=== PATIENT | female | born 1955 | race African-American/Black ===

== ENCOUNTER → 2023-09-10 15:58 | Outpatient (REF) | payer MEDICARE, SELFPAY | LOC: HWRCS 15:58 | PROVIDERS: ATTENDING PHYSICIAN Family Medicine | DX: R06.09 Other forms of dyspnea (principal); R60.0 Localized edema; I10 Essential (primary) hypertension | CPT/HCPCS: 93306 ==

== ENCOUNTER 2024-08-31 07:42 | Emergency (ER) | payer MEDICARE, SELFPAY ==
[2024-08-31 07:46] VITALS: BP 192/98
--- NOTE | 2024-08-31 09:12 | ED.GENMED ---
History of Present Illness
General
Chief Complaint: Abdominal Symptoms
Source: patient
Exam Limitations: none
Time Seen by Provider: 08/31/24 09:11
Nursing documentation reviewed up to this point in time: agreed with
History of Present Illness
History of Present Illness:
69-year-old female with history of HTN presents for sudden onset of nausea, vomiting, diarrhea at 12 AM today. She has had several episodes, her last emesis and the last diarrhea were 2 hours ago. She feels nauseous now. Her daughter with whom
she lives was sick with similar symptoms 2 days ago but she is much improved today.
Patient denies fever or chills. She states her abdomen is 'sore' she denies chest pain or SOB.
Past History
Past History
ED Past Medical History: HTN and Other (hiatal hernia)
ED Past Surgical History: Gynecological and Other (Cholecystotomy tube)
Social History
Tobacco: Non-smoker
Alcohol: Occasional
Living: with family
Employment: Not employed
Review of Systems
Review of Systems
Allergies reviewed?: Yes
All Other Systems: ROS reviewed and negative except as documented in HPI and ROS
Constitutional: Denies fever or chills
Respiratory: Denies trouble breathing
Cardiac: Denies chest pain
ABD/GI: Reports abdominal pain, nausea, vomiting and diarrhea; Denies bloody stools or black stools
: Denies dysuria, frequency or difficulty voiding
Musculoskeletal: Reports no symptoms
Skin: Reports no symptoms
Neurological: Reports no symptoms
Phy Exam
Physical Exam
Physical Exam:
GENERAL: No acute distress. A&Ox3.
CONSTITUTIONAL: Afebrile.
EYES: clear, conjunctivae normal
ENMT: moist mucus membranes
RESPIRATORY: Regular respirations, nonlabored, lungs clear.
CARDIOVASCULAR: Regular rate and rhythm, no murmurs, no rubs.
GI: Soft, nontender, normal BS
MUSCULOSKELETAL: Moves with ease. Well perfused.
SKIN: Warm, dry, normal
PSYCH: Normal mood and affect. Well kept, interactive and appropriate
NEUROLOGIC: Awake, alert and oriented. No focal neurological deficits
Course
Orders/Labs/Results
Orders:
Orders
08/31/24 09:12
Ondansetron Orally Disint [Zofran Odt (Orally Disintegrating)] 4 mg PO NOW STA
08/31/24 11:11
Glucagon [GlucaGen] 1 mg IV NOW STA
08/31/24 10:42
08/31/24 10:50
Vital Signs
Initial and Last Documented VS:
Initial Vital Signs
Temp Pulse Resp BP Pulse Ox
98.8 F 129 18 192/98 100
08/31/24 07:46 08/31/24 07:46 08/31/24 07:46 08/31/24 07:46 08/31/24 07:46
Last Documented Vital Signs
Temp Pulse Resp BP Pulse Ox
98.8 F 82 16 135/78 96
08/31/24 07:46 08/31/24 12:14 08/31/24 12:14 08/31/24 12:14 08/31/24 12:14
MDM/Problems Addressed
Differential Diagnosis Includes:
Gastroenteritis, norovirus
MDM/Problems Addressed:
69-year-old female with history of HTN presents for sudden onset of nausea, vomiting, diarrhea at 12 AM today. She has had several episodes, her last emesis and the last diarrhea were 2 hours ago. She feels nauseous now. Her daughter with whom
she lives was sick with similar symptoms 2 days ago but she is much improved today. Daughter was seen here and had IVFs.
Patient denies fever or chills. She states her abdomen is 'sore' she denies chest pain or SOB.
11:00 AM:
After multiple attempts by 2 different people, unable to retrieve blood work due to patient being a hard stick
After giving her Zofran she is able to hold fluids down and we will try to hydrate her that way.
NAD
1:00 p.m.
No vomiting or diarrhea since arrival
Drank 1500 ml fluid here.
States she is comfortable going home.
Rx for Zofran sent to her pharmacy.
No lab work indicated as she appears well, afebrile, most likely viral gastroenteritis as daughter had similar symptoms 3 days ago.
Pt ambulated out with normal gait
*Critical Care Note
Total Time (30-74mins, 75-104mins- exclusive of procedures): Not Applicable
ED Attending Note
-
Portions of this chart may have been created with voice recognition software.� Occasional wrong word or��sound alike� substitutions may have occurred due to the inherent limitations of voice recognition software.
Discharge Plan
Departure
Patient Disposition: Home (Routine Discharge)
Date of Disposition: 08/31/24
Time of Disposition: 13:02
Patient with high blood pressure during this ER visit?: No
Condition: Good
Discharge Problem:
Gastroenteritis
Instructions: Viral gastroenteritis in adults, Nausea and Vomiting, Adult (DC)
Prescriptions:
New
ondansetron 4 mg tablet,disintegrating
4 mg PO Q8H PRN (Reason: nausea and vomiting) 5 Days Qty: 15 0RF
No Action
aspirin 81 MG tablet,chewable
81 mg PO DAILY
cholecalciferol (vitamin D3) 1,000 UNITS tablet
1,000 units PO DAILY
Referrals:
Jennifer Wills MD [Family Provider] - As needed
Activity Restrictions/Additional Instructions:
As we discussed, you most likely have a GI virus.
I sent a prescription to your pharmacy for Zofran to use as needed for nausea and vomiting.
Continue to drink plenty of fluids
See your doctor in 5 to 7 days if you are not much improved by then
Interventions
Interventions:
*Risk Screen - Suicide Last Done: 08/31/24 07:46
*General Assessment Last Done: 08/31/24 11:50
*Neglect/Abuse Screening Last Done: 08/31/24 07:46
ED- Fall Risk Assessment Last Done: 08/31/24 11:52
*ED COVID-19 Vaccine History Last Done: 08/31/24 11:50
*Nursing Disposition Last Done: 08/31/24 13:13
ZE-Kgmzky-Flqihgdotr Assessment Last Done: 08/31/24 09:50
Discharge Date and Time
Discharge Date/Time: 08/31/24 13:14
Print Language: VIET[place]ESE
[2024-08-31] MEDS: ZOFRAN ODT (ORALLY DISINTEGRATING) 4 MG PO (09:44)
[2024-08-31 11:52] VITALS: BP 124/79
[2024-08-31 12:14] VITALS: BP 135/78
== END 2024-08-31 13:14 | disposition home or self-care (01) ==
LOC: EMR 07:42
PROVIDERS: EMERGENCY PHYSICIAN Emergency Medicine; FAMILY PHYSICIAN Family Medicine
DX: K52.9 Noninfective gastroenteritis and colitis, unspecified (principal); I10 Essential (primary) hypertension; K44.9 Diaphragmatic hernia without obstruction or gangrene
CPT/HCPCS: 99282

== ENCOUNTER 2024-09-23 14:58 | Emergency (ER) | payer MEDICARE, SELFPAY ==
[2024-09-23 15:09] VITALS: BP 203/131
[2024-09-23 15:23] LABS: % Basophils 0.4 % (0-2); % Eosinophils 0.7 % (0-6); % Immature Granulocytes 0.3 % (0-0.5); % Lymphocytes 39.3 % (20.5-51.1); % Monocytes 7.7 % (1.7-9.3); % Neutrophils 51.6 % (42.2-75.2); Absolute Eosinophils 0.1 10^3/uL (0-0.7); Absolute Lymphocytes 2.8 10^3/uL (1.2-3.4); Absolute Monocytes 0.6 10^3/uL (0.1-0.6); Absolute Neutrophils 3.7 10^3/uL (1.4-6.5); Hematocrit 44.7 % (37.0-47.0); Hemoglobin 14.4 g/dL (12.0-16.0); Mean Corp Hgb Conc. 32.2 g/dL (33.0-37.0); Mean Corpuscular Hgb 26.9 pg (27.0-31.0); Mean Corpuscular Volume 83.6 fL (81.0-99.0); Mean Platelet Volume 10.3 fL (7.4-10.4); Nucleated Red Blood Cells % 0 %; Platelet Count 202 10^3/uL (130-400); Red Blood Cell Count 5.35 10^6/uL (4.20-5.40); Red Cell Dist. Width 13.1 % (11.5-14.5); White Blood Cell Count 7.2 10^3/uL (4.8-10.8)
[2024-09-23 15:38] LABS: ALT (SGPT) 35 U/L (0-35); AST (SGOT) 34 U/L (14-36); Alkaline Phosphatase 118 U/L (38-126); Blood Urea Nitrogen 10 mg/dl (7-17); Calcium 10.1 mg/dl (8.4-10.2); Carbon Dioxide 24 mmol/L (22-30); Chloride 100 mmol/L (98-107); Glucose 115 mg/dl (70-99); Potassium 3.8 mmol/L (3.5-5.1); Sodium 138 mmol/L (135-145); Total Bilirubin 0.9 mg/dl (0.2-1.3); Total Protein 8.3 g/dl (6.3-8.2); eGFR > 60.00
[2024-09-23 15:50] LABS: Troponin I < 0.012 ng/ml
[2024-09-23 17:58] VITALS: BP 185/108
[2024-09-23 18:06] VITALS: BP 187/103
--- NOTE | 2024-09-23 18:27 | ED.GENMED ---
History of Present Illness
General
Chief Complaint: Chest Pain
Time Seen by Provider: 09/23/24 18:04
History of Present Illness
History of Present Illness:
69-year-old female presents to the emergency department for evaluation of chest heaviness that began last night. Pain is pleuritic in nature and nonradiating. No associated fevers or chills. Denies any nausea, vomiting, or diarrhea. No recent
cold or flu type illnesses. Does have a history of hypertension and has been compliant with her antihypertensives
Past History
Past History
ED Past Medical History: HTN and Other (hiatal hernia)
ED Past Surgical History: Gynecological and Other (Cholecystotomy tube)
Social History
Tobacco: Non-smoker
Alcohol: Occasional
Living: with family
Employment: Not employed
Review of Systems
Review of Systems
Allergies reviewed?: Yes
All Other Systems: ROS reviewed and negative except as documented in HPI and ROS
Phy Exam
Physical Exam
Physical Exam:
GEN: Well appearing, NAD, WDWN
HEENT: Oral mucosa moist, no scleral icterus
Cardiac: Regular rate And rhythm, no murmurs
Lung: No respiratory distress, no tachypnea, Lungs clear to auscultation bilaterally
MSK: No gross deformity or injuries
Skin: Good color, no pallor or jaundice, no rashes
Neuro: AO x3, moves all extremities freely
Psych: Calm, cooperative
Scores
Heart Score for Chest Pain Patients
STEMI patient?: No
History: Slightly or Non-Suspicious
ECG: Normal
Age: >/= 65 years
Risk Factors: 1 or 2 Risk Factors
Troponin: </= Normal Limit
Heart Score for Chest Pain Patients: 3
Heart Score Risk: 2.5% MACE over next 6 weeks
Course
Orders/Labs/Results
Orders:
Orders
09/23/24 15:00
Electrocardiogram (*1) Urgent
Reason for Study: Chest Pain
09/23/24 15:01
EKG- Treatment ONCE
09/23/24 15:12
Electrocardiogram (*1) Urgent
Reason for Study: Chest Pain
09/23/24 15:13
EKG- Treatment ONCE
CR Chest - 2 Views Urgent
Comment:
Reason For Exam: chest pain
09/23/24 15:17
Complete Blood Count/With Diff Urgent
Comprehensive Metabolic Panel Urgent
Troponin I Urgent
09/23/24 18:26
Ketorolac [Toradol] 15 mg IV NOW STA
09/23/24 18:42
D-Dimer Urgent
09/23/24 19:04
CT Chest PE Study Urgent
Comment:
Reason For Exam: chest pain/SOB, elevated Dimer
Abnormal Lab Results
09/23/24 09/23/24
15:17 18:42
MCH 26.9 L pg
(27.0-31.0)
MCHC 32.2 L g/dL
(33.0-37.0)
D-Dimer 2.07 H ug/mlFEU
(0.00-0.50)
Glucose 115 H mg/dl
(70-99)
Total Protein 8.3 H g/dl
(6.3-8.2)
09/23/24 15:17
09/23/24 15:17
Vital Signs
Initial and Last Documented VS:
Initial Vital Signs
Temp Pulse Resp BP Pulse Ox
98.6 F 111 18 203/131 100
09/23/24 15:09 09/23/24 15:09 09/23/24 15:09 09/23/24 15:09 09/23/24 15:09
Last Documented Vital Signs
Temp Pulse Resp BP Pulse Ox
97.5 F 80 14 187/103 100
09/23/24 17:58 09/23/24 19:15 09/23/24 19:15 09/23/24 18:06 09/23/24 19:15
MDM/Problems Addressed
MDM/Problems Addressed:
Unclear etiology of the patient's symptoms however the description is suggestive of musculoskeletal etiology. Troponin is negative and PE study after elevated D-dimer was reassuring. She is markedly hypertensive and is encouraged to follow-up with
her primary care physician for further workup of this. NSAIDs until primary care follow-up
*Critical Care Note
Total Time (30-74mins, 75-104mins- exclusive of procedures): Not Applicable
ED Attending Note
-
Portions of this chart may have been created with voice recognition software.� Occasional wrong word or��sound alike� substitutions may have occurred due to the inherent limitations of voice recognition software.
Discharge Plan
Departure
Patient Disposition: Home (Routine Discharge)
Date of Disposition: 09/23/24
Time of Disposition: 20:53
Patient with high blood pressure during this ER visit?: No
Discharge Problem:
Atypical chest pain
Instructions: Chest Pain DCA Follow Up
Prescriptions:
No Action
aspirin 81 MG tablet,chewable
81 mg PO DAILY
cholecalciferol (vitamin D3) 1,000 UNITS tablet
1,000 units PO DAILY
ondansetron 4 mg tablet,disintegrating
4 mg PO Q8H PRN (Reason: nausea and vomiting) 5 Days Qty: 15 0RF
Referrals:
Jennifer Wills MD [Primary Care Provider] -
Interventions
Interventions:
*Risk Screen - Suicide Last Done: 09/23/24 15:09
*General Assessment Last Done: 09/23/24 15:09
*Neglect/Abuse Screening Last Done: 09/23/24 15:09
ED- Fall Risk Assessment Last Done: 09/23/24 18:13
*ED COVID-19 Vaccine History Last Done: 09/23/24 15:09
*Nursing Disposition Last Done: 09/23/24 21:10
ED- Cardiac Assessment Last Done: 09/23/24 18:13
Discharge Date and Time
Discharge Date/Time: 09/23/24 21:17
Print Language: [place]
[2024-09-23] MEDS: TORADOL 15 MG IV (18:42)
[2024-09-23 18:59] LABS: D-Dimer 2.07 ug/mlFEU (0.00-0.50)
== END 2024-09-23 21:17 | disposition home or self-care (01) ==
LOC: EMR 14:58
PROVIDERS: Physician Assistant; EMERGENCY PHYSICIAN Emergency Medicine; PRIMARYCARE PHYSICIAN Family Medicine
DX: R07.89 Other chest pain (principal); I10 Essential (primary) hypertension; R79.1 Abnormal coagulation profile; Z79.899 Other long term (current) drug therapy
CPT/HCPCS: 99285; 71046; 71275; 80053; 84484; 85025; 85379; 93005; Q9967

== ENCOUNTER 2025-06-18 09:45 | Emergency (ER) | payer MEDICARE, SELFPAY ==
[2025-06-18 09:49] VITALS: BP 193/100
--- NOTE | 2025-06-18 10:17 | ED.GENMED ---
History of Present Illness
General
Chief Complaint: Chest Pain
Source: patient
Time Seen by Provider: 06/18/25 10:06
History of Present Illness
History of Present Illness:
This patient is a 69-year-old female presents emergency department accompanied by her daughter with complaints of left sided chest pain noted 'under my breast' that started on Sunday, gradual in onset, waxing and waning in intensity. The pain is
nonradiating, and she denies associated back pain, neck pain, jaw pain, diaphoresis, nausea, vomiting. She says she feels dyspneic 'off-and-on'. She denies leg swelling, smoking, estrogen use, recent immobilization, recent trauma. She denies
fever, chills, cough, sore throat, rhinorrhea, or other complaints. She does note that the pain seems to be better when she is upright and walking and worse when she sits down or lays supine particularly at night. She wonders if her symptoms are
related to reflux which has not been formally diagnosed.
Past History
Past History
ED Past Medical History: HTN and Other (hiatal hernia)
ED Past Surgical History: Gynecological and Other (Cholecystotomy tube)
Social History
Tobacco: Non-smoker
Alcohol: Occasional
Drug: None
Living: with family
Employment: Not employed
Phy Exam
Physical Exam
Physical Exam:
GENERAL: Alert , in no apparent distress
EYE: pupils equal and reactive
NECK: Supple, no significant adenopathy.
ENT: o/p clr, mmm.
CARDIAC: Regular rate and rhythm ., No tenderness to palpation of chest wall, no rash noted
LUNGS: Clear breath sounds bilaterally, no acute respiratory distress, no wheezes/rales/rhonchi
ABDOMEN: Soft, without focal tenderness, no r/g, no cvat
NEUROLOGICAL: Alert and oriented, no focal neuro deficits
SKIN: Warm and dry, skin intact.
MUSCULOSKELETAL: No edema, well perfused.
PSYCH: Normal and appropriate interaction.
Course
Orders/Labs/Results
Orders:
Orders
06/18/25 09:52
Electrocardiogram (*1) Urgent
Reason for Study: Chest Pain
EKG- Treatment ONCE
06/18/25 10:16
Aspirin 325 mg PO NOW STA
Mag Hydrox/Al Hydrox/Simeth [Maalox] 30 ml Phenobarb/Hyoscy/Atropine/Scop [] 10 ml Viscous Lidocaine 2% [Xylocaine Viscous Cup] 10 ml PO NOW
06/18/25 10:17
Cardiac Monitoring- Treatment ONCE
CR Chest - 2 Views Urgent
Comment:
Reason For Exam: L sided chest pain
06/18/25 10:38
Mag Hydrox/Al Hydrox/Simeth [Maalox] 30 ml .ROUTE .STK-MED ONE
Phenobarb/Hyoscy/Atropine/Scop [] 10 ml .ROUTE .STK-MED ONE
Viscous Lidocaine 2% [Xylocaine Viscous Cup] 15 ml .ROUTE .STK-MED ONE
06/18/25 10:47
Complete Blood Count/No Diff Urgent
Comprehensive Metabolic Panel Urgent
D-Dimer Urgent
Troponin I Urgent
06/18/25 11:40
CT Chest PE Study Urgent
Comment:
Reason For Exam: cp
06/18/25 11:50
Morphine Sulfate 4 mg IV NOW STA
06/18/25 12:56
Ketorolac [Toradol] 15 mg IV NOW STA
06/18/25 14:21
Troponin I Urgent
06/18/25 14:28
Electrocardiogram (*1) Urgent
Reason for Study: Chest Pain
EKG- Treatment ONCE
Abnormal Lab Results
06/18/25
10:47
MCHC 32.9 L g/dL
(33.0-37.0)
D-Dimer 0.51 H ug/mlFEU
(0.00-0.50)
Glucose 143 H mg/dl
(70-99)
Total Protein 8.5 H g/dl
(6.3-8.2)
06/18/25 10:47
06/18/25 10:47
Vital Signs
Initial and Last Documented VS:
Initial Vital Signs
Temp Pulse Resp BP Pulse Ox
98.0 F 94 15 193/100 100
06/18/25 09:49 06/18/25 09:49 06/18/25 09:49 06/18/25 09:49 06/18/25 09:49
Last Documented Vital Signs
Temp Pulse Resp BP Pulse Ox
98.0 F 79 14 182/84 98
06/18/25 09:49 06/18/25 14:23 06/18/25 14:23 06/18/25 14:24 06/18/25 14:23
*Pulse Oximetry
SaO2: 100
Oxygen Mode of Delivery: Room air
Update Note
Update Note:
Patient presents to the Emergency Department with ____chest pain
Number and Complexity of Problems Addressed at the Encounter
� Chronic conditions affecting care:
� Acute Exacerbation and/or Progression of Chronic Illness:
� Differential Diagnosis includes:but not limited to acs, pe, pericarditis, ptx, pna, gerd, etc etc
Amount and/or Complexity of Data to be Reviewed and Analyzed
� I performed an independent evaluation of and my interpretation is:
EKG: Read by me, normal sinus rhythm, normal rate, no acute ischemia, normal axis
CT:nad, no pe
Xrays:read by me, nad
Laboratory Studies:trop wnl,generally unremarkable
Other:
� Review of other/old records reveals:
� Clinical information was obtained by an independent historian: Daughter who is bedside
� Prescriptions/Medications Considered but not given:
� Further testing considered but not performed:
Risk of Complications and/or Morbidity or Mortality of Patient Management
� Social determinants of health affecting care:
� Discussion with other providers (PCP, Hospitalists, Consultants, etc):
� Escalation of care including admission/observation vs risk of discharge considered:multiple reassessmetns, pain improved, vitals stable. CT neg for acute dz. Ecg Times two unremarkable, nonspec T wave flat, no signs acute
ischemia, pericarditis, etc. Awaiting second trop if wnl, d/c with close f/u
ED Attending Note
-
Portions of this chart may have been created with voice recognition software.� Occasional wrong word or��sound alike� substitutions may have occurred due to the inherent limitations of voice recognition software.
Discharge Plan
Departure
Patient Disposition: Home (Routine Discharge)
Date of Disposition: 06/18/25
Time of Disposition: 15:15
Patient with high blood pressure during this ER visit?: Yes
Condition: Good
Discharge Problem:
Chest pain
Instructions: Chest Pain DCA Follow Up, BLOOD PRESSURE
Prescriptions:
No Action
aspirin 81 MG tablet,chewable
81 mg PO DAILY
cholecalciferol (vitamin D3) 1,000 UNITS tablet
1,000 units PO DAILY
ondansetron 4 mg tablet,disintegrating
4 mg PO Q8H PRN (Reason: nausea and vomiting) 5 Days Qty: 15 0RF
Referrals:
Jennifer Wills MD [Family Provider, Family Practice] - Follow up in 2-3 days
Activity Restrictions/Additional Instructions:
PLEASE SEE [facility] DOCTOR IN CLOSE FOLLOW UP. IF YOU DEVELOP INCREASING/NEW/PERSISTENT PAIN, DIZZINESS, TROUBLE BREATHING, VOMITING, GET WORSE, DO NOT GET BETTER, OR OTHER WORRISOME SIGNS, GO TO THE ER IMMEDIATELY!
Interventions
Interventions:
*Risk Screen - Suicide Last Done: 06/18/25 09:49
*General Assessment Last Done: 06/18/25 10:43
*Neglect/Abuse Screening Last Done: 06/18/25 09:49
*ED- Fall Risk Assessment Last Done: 06/18/25 10:43
*ED COVID-19 Vaccine History Last Done: 06/18/25 10:43
*ED Influenza Vaccine History Last Done: 06/18/25 10:43
ED- Cardiac Assessment Last Done: 06/18/25 10:43
Discharge Date and Time
Print Language: WOLOF
[2025-06-18] MEDS: ASPIRIN 325 MG PO (10:40)
[2025-06-18] MEDS: MAALOX 50 PO (10:40)
[2025-06-18 10:41] VITALS: BMI 35.5
[2025-06-18 10:57] LABS: Hematocrit 43.8 % (37.0-47.0); Hemoglobin 14.4 g/dL (12.0-16.0); Mean Corp Hgb Conc. 32.9 g/dL (33.0-37.0); Mean Corpuscular Volume 83.6 fL (81.0-99.0); Platelet Count 202 10^3/uL (130-400); Red Cell Dist. Width 13.2 % (11.5-14.5)
[2025-06-18 11:06] LABS: D-Dimer 0.51 ug/mlFEU (0.00-0.50)
[2025-06-18 11:08] LABS: ALT (SGPT) 29 U/L (0-35); AST (SGOT) 28 U/L (14-36); Albumin 4.7 g/dl (3.5-5.0); Alkaline Phosphatase 121 U/L (38-126); Blood Urea Nitrogen 9 mg/dl (7-17); Calcium 9.6 mg/dl (8.4-10.2); Carbon Dioxide 26 mmol/L (22-30); Chloride 105 mmol/L (98-107); Estimated Creatinine Clearance 87 ml/min; Glucose 143 mg/dl (70-99); Potassium 4.3 mmol/L (3.5-5.1); Sodium 137 mmol/L (135-145); Total Protein 8.5 g/dl (6.3-8.2); eGFR > 60.00
[2025-06-18 11:18] LABS: Troponin I < 0.012 ng/ml
[2025-06-18] MEDS: MORPHINE SULFATE 4 MG IV (12:05)
[2025-06-18] MEDS: TORADOL 15 MG IV (13:02)
[2025-06-18 14:23] VITALS: BP 182/84
[2025-06-18 14:24] VITALS: BP 182/84
[2025-06-18 15:00] VITALS: BP 147/72
[2025-06-18 15:11] LABS: Troponin I < 0.012 ng/ml
== END 2025-06-18 15:40 | disposition home or self-care (01) ==
LOC: EMR 09:45
PROVIDERS: EMERGENCY PHYSICIAN Emergency Medicine; FAMILY PHYSICIAN Family Medicine
DX: R07.89 Other chest pain (principal); I10 Essential (primary) hypertension; K21.9 Gastro-esophageal reflux disease without esophagitis; Z90.49 Acquired absence of other specified parts of digestive tract
CPT/HCPCS: 99285; 96374; 96375; 71046; 71275; 80053; 84484; 85027; 85379; 93005; Q9967